=== PATIENT | female | born 1980 | race Hispanic/Latino ===

== ENCOUNTER 2017-06-25 09:27 | Emergency (ER) | payer OTHER, BC ==
[2017-06-25 09:33] VITALS: TEMP 98; O2SAT 99
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
[2017-06-25] MEDS ORDERED: Sodium Chloride 0.9% 1,000 ML IV STA (10:15)
[2017-06-25 10:19] LABS: BASO # 0.05 K/mm3 (0.0-2.0); BASO % 0.5 % (0.0-3.0); EOS # 0.1 (0.0-0.7); EOS % 1.2 % (1.5-5.0); GRAN # 7.67 (1.4-6.5); GRAN % 73.5 % (50.0-68.0); HEMATOCRIT 38.9 % (36.0-48.0); LYMPH # 1.4 (1.2-3.4); LYMPH % 13.5 % (22.0-35.0); MEAN CELL VOLUME 89.6 fl (80.0-105.0); MEAN CORPUSCULAR HEMOGLOBIN 28.6 pg (25.0-35.0); MEAN CORPUSCULAR HGB CONC 31.9 g/dl (31.0-37.0); MEAN PLATELET VOLUME 9.7 fl (7.0-11.0); MONO # 1.2 (0.1-0.6); MONO % 11.3 % (1.0-6.0); RED CELL DISTRIBUTION WIDTH 15.7 % (11.5-14.5); URINE BILIRUBIN NEGATIVE (NEGATIVE); URINE BLOOD NEGATIVE (NEGATIVE); URINE GLUCOSE (UA) NEGATIVE (NEGATIVE); URINE KETONE NEGATIVE (NEGATIVE); URINE LEUKOCYTE ESTERASE NEGATIVE Leu/uL (NEGATIVE); URINE PROTEIN 30 mg/dL (<30 mg/dL); URINE UROBILINOGEN 0.2 E.U./dL (<1 E.U./dL); WHITE BLOOD COUNT 10.4 10^3/ul (4.5-11.0)
[2017-06-25 10:20] LABS: URINE APPEARANCE SL CLOUDY (CLEAR); URINE COLOR YELLOW (YELLOW)
[2017-06-25 10:27] LABS: BLOOD UREA NITROGEN 10 mg/dL (7-21); CARBON DIOXIDE 29 mmol/L (21-33); CHLORIDE 108 mmol/L (98-107); GFR AFRICAN-AMERICAN > 60; GLUCOSE,RANDOM 107 mg/dL (70-110); POTASSIUM 3.7 mmol/L (3.6-5.0); SODIUM 149 mmol/L (132-148)
[2017-06-25 10:28] LABS: ALB/GLOB RATIO 1.4 (1.1-1.8); ALKALINE PHOSPHATASE 65 U/L (38-126); ALT/SGPT 55 U/L (7-56); AST/SGOT 50 U/L (14-36); BILIRUBIN,TOTAL 0.7 mg/dL (0.2-1.3); CALCIUM 8.9 mg/dL (8.4-10.5); TOTAL PROTEIN 7.5 g/dL (5.8-8.3)
[2017-06-25 10:34] LABS: URINE BACTERIA SMALL (NEG); URINE EPITHELIAL CELLS MANY /hpf (0-5); URINE RBC NEGATIVE /hpf (0-2); URINE WBC 0 - 2 /hpf (0-6)
[2017-06-25] MEDS ORDERED: Iohexol 350 MG/100 ML VIAL ONE (10:51)
--- NOTE | 2017-06-25 11:32 | CT ---
PROCEDURE: CT HEAD WITHOUT CONTRAST. HISTORY: autoped COMPARISON: CT maxillofacial of 07/02/2013 TECHNIQUE: Axial computed tomography images were obtained through the head/brain without intravenous contrast. Radiation dose: Total exam DLP = 678 mGy-cm. This CT exam was performed using one or more of the following dose reduction techniques: Automated exposure control, adjustment of the mA and/or kV according to patient size, and/or use of iterative reconstruction technique. FINDINGS: HEMORRHAGE: No intracranial hemorrhage. There is some motion artifact present BRAIN: No mass effect or edema. No atrophy or chronic microvascular ischemic changes. VENTRICLES: Unremarkable. No hydrocephalus. CALVARIUM: A 3 mm left posterior parietal intra calvarial lucency - nonspecific and indeterminate is noted. Prior CT maxillofacial study did not include this high anatomy point to assess for its stability. No calvarial fracture noted. The deformity of the left orbit along with the intra orbital fat herniating into the left maxillary sinus is a chronic status for this patient document on the July 02 2013 study PARANASAL SINUSES: Ethmoidal sinus inflammatory changes noted. 1 cm left sphenoid sinus retention cyst suggested MASTOID AIR CELLS: Unremarkable as visualized. No inflammatory changes. OTHER FINDINGS: No left scalp swelling appreciated. Nasopharyngeal soft tissue prominence- hypertrophic lymphatic tissue here is inferred. Correlate clinically IMPRESSION: No intracranial hemorrhage or mass effect. 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 No acute calvarial interval fractures appreciated. Ethmoid and sphenoid sinus inflammatory changes. Sphenoid sinus retention cyst Nasopharyngeal soft tissue prominence- hypertrophic lymphatic tissue here is inferred. Correlate clinically
--- NOTE | 2017-06-25 12:23 | CT ---
PROCEDURE: CT Chest, Abdomen and Pelvis with intravenous contrast HISTORY: autoped right sided rib/upper abd pain COMPARISON: None. TECHNIQUE: IV dose administered: 100 cc of Omni 350 Radiation dose: Total exam DLP = 1057 mGy-cm. This CT exam was performed using one or more of the following dose reduction techniques: Automated exposure control, adjustment of the mA and/or kV according to patient size, and/or use of iterative reconstruction technique. FINDINGS: CT CHEST WITH CONTRAST: LUNGS: Clear. No nodule, mass or consolidation. MEDIASTINUM: Unremarkable. Normal caliber aorta and pulmonary arterial trunk. No aortic dissection. Normal size heart. LYMPH NODES: Unremarkable. PLEURA: Unremarkable. No pneumothorax. No pleural fluid. BONES: Unremarkable. OTHER FINDINGS: None. CT ABDOMEN AND PELVIS: LIVER: Unremarkable. No gross lesion or ductal dilatation. GALLBLADDER AND BILE DUCTS: Unremarkable. PANCREAS: Unremarkable. No gross lesion or ductal dilatation. SPLEEN: Unremarkable. ADRENALS: Unremarkable. No mass. KIDNEYS AND URETERS: Unremarkable. No hydronephrosis. No solid mass. VASCULATURE: Unremarkable. No aortic aneurysm. BOWEL: There is mild mural thickening in the descending and sigmoid colon. Part of this may be due to lack of distension. A mild colitis cannot be excluded. APPENDIX: Normal appendix. PERITONEUM: Unremarkable. No free fluid. No free air. LYMPH NODES: Unremarkable. No enlarged lymph nodes. BLADDER: Unremarkable. REPRODUCTIVE: Unremarkable. BONES: No acute fracture. OTHER FINDINGS: None. IMPRESSION: There is mild mural thickening in the descending and sigmoid colon. Part of this may be due to lack of distension. A mild colitis cannot be excluded. Study is otherwise unremarkable
[2017-06-25 13:29] VITALS: BP 119/88; PULSE 89; RESP 19
--- NOTE | 2017-06-25 16:55 | CARD ---
APPROVED REPORT EKG Measurement Heart [id number] <Conclusion> Normal sinus rhythm with sinus arrhythmia Prolonged QT Abnormal ECG
== END 2017-06-25 13:41 | disposition home or self-care (01) ==
LOC: ED 09:27
DX: S20.219A Contusion of unspecified front wall of thorax, initial encounter (principal); S09.90XA Unspecified injury of head, initial encounter; S30.1XXA Contusion of abdominal wall, initial encounter; S30.0XXA Contusion of lower back and pelvis, initial encounter; V03.90XA Pedestrian on foot injured in collision with car, pick-up truck or van, unspecified whether traffic or nontraffic accident, initial encounter; Y92.410 Unspecified street and highway as the place of occurrence of the external cause
CPT/HCPCS: 70450; 71260; 74177; 80053; 81001; 85025; 93005; 96361; 96374; 99285; J1885; J7040; Q9967

== ENCOUNTER 2018-12-03 10:59 | Emergency (ER) | payer BC, MEDICAID, OTHER ==
[2018-12-03 11:12] VITALS: RESP 18; TEMP 99.2
--- NOTE | 2018-12-03 11:48 | ED PDOC ---
Arrival/HPI - General Chief Complaint: Lower Extremity Problem/Injury Historian: Patient - History of Present Illness Narrative History of Present Illness (Text): 12/03/18 11:45 38 y/o female, no significant pmh, nkda, c/o left calf swelling and pain s/p twisted while going down the stair x 5 days. Pt. stated she has left calf pain, still in pain with improved, no fever or chills, no headache or night sweat, able to walk and stand but in pain, no numbness or tingling, able to lt. foot/ankle plantar flexion and extension, no dizziness, no other medical or psychological complaints. Past Medical History - Provider Review Nursing Documentation Reviewed: Yes - Infectious Disease Hx of Infectious Diseases: None - Tetanus Immunization Tetanus Immunization: Unknown - Reproductive Menopause: No - Psychiatric Hx Substance Use: No - Surgical History Hx Section: Yes Family/Social History - Physician Review Nursing Documentation Reviewed: Yes Family/Social History: Unknown Family HX Smoking Status: Never Smoked Hx Alcohol Use: Yes Hx Substance Use: No Allergies/Home Meds Allergies/Adverse Reactions: Allergies No Known Allergies Allergy (Verified 06/25/17 09:33) Review of Systems - Review of Systems Constitutional: absent: Fatigue, Fevers Eyes: absent: Vision Changes ENT: absent: Hearing Changes Respiratory: absent: SOB, Cough Cardiovascular: absent: Chest Pain Gastrointestinal: absent: Abdominal Pain, Diarrhea, Nausea, Vomiting Musculoskeletal: Myalgias. absent: Arthralgias, Back Pain, Neck Pain, Joint Swelling Skin: absent: Rash, Pruritis Neurological: absent: Headache, Dizziness Psychiatric: absent: Anxiety, Depression, Suicidal Ideation Physical Exam Vital Signs Reviewed: Yes Vital Signs Temp Pulse Resp BP Pulse Ox 12/03/18 11:09 99.2 F 92 H 18 150/118 H 98 Temperature: Afebrile Blood Pressure: Hypertensive Pulse: Regular Respiratory Rate: Normal Appearance: Positive for: Well-Appearing, Non-Toxic, Comfortable Pain Distress: Moderate Mental Status: Positive for: Alert and Oriented X 3 - Systems Exam Head: Present: Atraumatic, Normocephalic Pupils: Present: PERRL Extroacular Muscles: Present: EOMI Conjunctiva: Present: Normal Mouth: Present: Moist Mucous Membranes Neck: Present: Normal Range of Motion Respiratory/Chest: Present: Clear to Auscultation, Good Air Exchange. No: Respiratory Distress, Accessory Muscle Use Cardiovascular: Present: Regular Rate and Rhythm, Normal S1, S2. No: Murmurs Abdomen: No: Tenderness, Distention, Peritoneal Signs Back: Present: Normal Inspection Upper Extremity: Present: Normal Inspection. No: Cyanosis, Edema Lower Extremity: Present: Normal Inspection, Other (Lt. lower extremity: +ttp and swelling with resolving ecchymosis noted on the left calf region, no bony tenderness or swelling, FROM without limitation, sensation intact, motor 5/5, +DPPT pulses, capillary refill< 2 seconds. ). No: Edema Neurological: Present: GCS=15, CN II-XII Intact, Speech Normal, Motor Func Grossly Intact, Normal Cerebellar Funct, Gait Normal, Memory Normal Skin: Present: Warm, Dry, Normal Color. No: Rashes Psychiatric: Present: Alert, Oriented x 3, Normal Insight, Normal Concentration Medical Decision Making ED Course and Treatment: 12/03/18 11:48 -labs -xray -IVF/toradol -[place] r/o compartment -Observe and reassess 12/03/18 15:12 -Lt. tibia/fibula Unremarkable radiographs of the left tibia and fibula. -LLE Venuous doppler No sonographic evidence for deep venous thrombosis in the visualized segments of the left lower extremity. Large left posterior calf collection. -Labs are non-significant -CPK 545, IVF ordered -Vincent on the left calf region: clean with normal saline/betadine/alcohol prep, following the manual instruction, [place] pressure obtained from the left calf extremity: anterior/lateral/posterior compartment with pressure around 12- 18, no signs of compartment syndrome. -There is no signs of infection. -Pt. feels well, no difficulty moving the lt. lower extremity and able to flexion and extension on the foot/ankle, negative tonya and interiano sign on the left lower extremity. -I offered further radiology testing and evaluation but the patient stated that she feels well, wanna be discharged home now, advised her to return to the ER for any new or worsening signs or symptoms. -Pt. feels well, no pain now, request to be discharged home. -Discharge home with crutches, motrin, follow up with your own pmd and orthopedic within 2 days, return to the Er for any new or worsening signs or symptoms. - RAD Interpretation Radiology Orders: 12/03/18 11:39 TIBIA FIBULA LT FALL PROTOCOL [RAD] Stat DUPLEX LOWER EXTRM VEIN LEFT [US] Stat Lt. tibia/fibula: Date of service: 12/03/2018 PROCEDURE: Radiographs of the left tibia and fibula. HISTORY: lt. tibia/fibula and pain COMPARISON: None available. TECHNIQUE: Frontal and lateral views obtained. 2 views obtained. FINDINGS: BONES: No fracture or destructive lesion. JOINT SPACES: Unremarkable. OTHER FINDINGS: None. IMPRESSION: Unremarkable radiographs of the left tibia and fibula. LLE Venuous doppler: PROCEDURE: Left lower extremity venous US HISTORY: Leg pain and swelling. Evaluate for DVT. PHYSICIAN(S): Gianni Watters MD. TECHNIQUE: Duplex sonography and color-flow Doppler with graded compression were used to evaluate the deep venous system of the left lower extremity. FINDINGS: The visualized deep venous system of the left lower extremity is sonographically normal and compressible. Normal wave forms and augmentation are seen. There is no sonographic evidence for deep venous thrombosis in the visualized segments of the left lower extremity. There is a complex 6 x 13 cm fluid collection in the left calf, the differential includes hematoma or possibly infection IMPRESSION: 1. No sonographic evidence for deep venous thrombosis in the visualized segments of the left lower extremity. 2. Large left posterior calf collection. The differential includes hematoma or infection [place] Constable: Radiologist - PA / ROOFER / Resident Statement MD/DO has reviewed & agrees with the documentation as recorded. Disposition/Present on Arrival - Present on Arrival Any Indicators Present on Arrival: No History of DVT/PE: No History of Uncontrolled Diabetes: No Urinary Catheter: No History of Decub. Ulcer: No History Surgical Site Infection Following: None - Disposition Have Diagnosis and Disposition been Completed?: Yes Diagnosis: Calf pain, Hematoma Disposition: HOME/ ROUTINE Disposition Time: 15:19 Patient Plan: Discharge Condition: IMPROVED Additional Instructions: -Discharge home with crutches, motrin, follow up with your own pmd and orthopedic within 2 days, return to the Er for any new or worsening signs or symptoms. Prescriptions: Ibuprofen [Motrin Tab] 800 mg PO TID PRN #21 tab PRN Reason: Other Referrals: PCP,NO [Primary Care Provider] - Follow up with primary [facility] [place] [Outside] - Follow up with primary Iggy Rao MD [Staff Provider] - Follow up with primary Forms: [employer] (Stateless), WORK NOTE
[2018-12-03 12:04] LABS: BASO # 0.02 K/mm3 (0.0-2.0); BASO % 0.3 % (0.0-3.0); EOS # 0.1 (0.0-0.7); HEMOGLOBIN 12.6 g/dL (12.0-16.0); LYMPH # 1.1 (1.2-3.4); LYMPH % 18.3 % (22.0-35.0); MEAN CELL VOLUME 93.6 fl (80.0-105.0); MEAN CORPUSCULAR HEMOGLOBIN 29.7 pg (25.0-35.0); MEAN CORPUSCULAR HGB CONC 31.7 g/dl (31.0-37.0); MONO # 0.6 (0.1-0.6); MONO % 10.9 % (1.0-6.0); RBC 4.24 10^6/uL (3.5-6.1); RED CELL DISTRIBUTION WIDTH 14.7 % (11.5-14.5); WHITE BLOOD COUNT 5.9 10^3/uL (4.5-11.0)
[2018-12-03 12:05] LABS: URINE BILIRUBIN NEGATIVE (NEGATIVE); URINE BLOOD NEGATIVE (NEGATIVE); URINE GLUCOSE (UA) NEGATIVE (NEGATIVE); URINE LEUKOCYTE ESTERASE NEGATIVE Leu/uL (NEGATIVE); URINE PROTEIN TRACE mg/dL (<30 mg/dL); URINE UROBILINOGEN 0.2 E.U./dL (<1 E.U./dL)
[2018-12-03 12:07] LABS: URINE APPEARANCE CLEAR (CLEAR); URINE COLOR YELLOW (YELLOW)
[2018-12-03 12:10] LABS: URINE RBC 0 - 2 /hpf (0-2); URINE WBC 0 - 2 /hpf (0-6)
[2018-12-03 12:11] LABS: URINE BACTERIA MOD /hpf
[2018-12-03 12:14] LABS: ALB/GLOB RATIO 1.2 (1.1-1.8); ALBUMIN 4.2 g/dL (3.0-4.8); ALT/SGPT 93 U/L (7-56); AST/SGOT 150 U/L (14-36); BLOOD UREA NITROGEN 4 mg/dL (7-21); CALCIUM 8.4 mg/dL (8.4-10.5); GFR NON-AFRICAN AMERICAN > 60
[2018-12-03] MEDS ORDERED: Sodium Chloride 0.9% 1,000 ML IV STA (12:18)
[2018-12-03] MEDS ORDERED: Lidocaine 1% Inj (20ml) ONE (12:29)
[2018-12-03 12:35] LABS: CK-MB 1.7 ng/mL (0.0-3.6)
[2018-12-03 14:21] VITALS: PULSE 71; O2SAT 95
--- NOTE | 2018-12-03 14:46 | RAD ---
Date of service: 12/03/2018 PROCEDURE: Radiographs of the left tibia and fibula. HISTORY: lt. tibia/fibula and pain COMPARISON: None available. TECHNIQUE: Frontal and lateral views obtained. 2 views obtained. FINDINGS: BONES: No fracture or destructive lesion. JOINT SPACES: Unremarkable. OTHER FINDINGS: None. IMPRESSION: Unremarkable radiographs of the left tibia and fibula.
--- NOTE | 2018-12-03 15:14 | US ---
PROCEDURE: Left lower extremity venous US HISTORY: Leg pain and swelling. Evaluate for DVT. PHYSICIAN(S): Gianni Watters MD. TECHNIQUE: Duplex sonography and color-flow Doppler with graded compression were used to evaluate the deep venous system of the left lower extremity. FINDINGS: The visualized deep venous system of the left lower extremity is sonographically normal and compressible. Normal wave forms and augmentation are seen. There is no sonographic evidence for deep venous thrombosis in the visualized segments of the left lower extremity. There is a complex 6 x 13 cm fluid collection in the left calf, the differential includes hematoma or possibly infection IMPRESSION: 1. No sonographic evidence for deep venous thrombosis in the visualized segments of the left lower extremity. 2. Large left posterior calf collection. The differential includes hematoma or infection
[2018-12-03 15:23] VITALS: BP 153/87
== END 2018-12-03 15:25 | disposition home or self-care (01) ==
LOC: ED 10:59
DX: S80.12XA Contusion of left lower leg, initial encounter (principal); X50.1XXA Overexertion from prolonged static or awkward postures, initial encounter; M79.605 Pain in left leg
CPT/HCPCS: 73590; 80053; 81001; 81025; 82550; 82553; 85025; 93971; 96361; 96374; 99285; J1885; J7030

== ENCOUNTER 2019-01-12 19:38 | Emergency (ER) | payer MEDICAID ==
[2019-01-12 20:00] VITALS: BMI 30.2
[2019-01-12 20:04] VITALS: BP 134/51; PULSE 124; RESP 18; TEMP 97.6; O2SAT 98
--- NOTE | 2019-01-12 20:43 | ED PDOC ---
Arrival/HPI - General Chief Complaint: Alcohol Ingestion Time Seen by Provider: 01/12/19 19:49 Historian: Patient - History of Present Illness Narrative History of Present Illness (Text): 01/12/19 23:48 39 yo F brought in for evaluation for alcohol intoxication. 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 Otherwise she reports no head injury, LOC, N/V, neck/back pain, elbow/arm pain, other extremity pain, CP, abd pain, headache, dizziness. Pt states that she feels well and wants to go home. Past Medical History - Infectious Disease Hx of Infectious Diseases: None - Tetanus Immunization Tetanus Immunization: Unknown - Psychiatric Hx Substance Use: No - Surgical History Hx Section: Yes - Anesthesia Hx Anesthesia: Yes Hx Anesthesia Reactions: No Hx Malignant Hyperthermia: No Family/Social History Family/Social History: No Known Family HX Smoking Status: Never Smoked Hx Alcohol Use: Yes Hx Substance Use: No Allergies/Home Meds Allergies/Adverse Reactions: Allergies No Known Allergies Allergy (Verified 06/25/17 09:33) Review of Systems - Review of Systems Constitutional: absent: Fatigue, Fevers Respiratory: absent: SOB, Cough Cardiovascular: absent: Chest Pain, Palpitations Gastrointestinal: absent: Abdominal Pain, Nausea, Vomiting Genitourinary Female: absent: Dysuria, Frequency Musculoskeletal: absent: Arthralgias, Back Pain, Neck Pain Skin: absent: Rash, Pruritis, Skin Lesions Neurological: absent: Headache, Dizziness Psychiatric: absent: Depression, Suicidal Ideation Physical Exam Vital Signs Temp Pulse Resp BP Pulse Ox 01/12/19 19:38 97.6 F 124 H 18 134/51 L 98 Temperature: Afebrile Blood Pressure: Normal Pulse: Regular Respiratory Rate: Normal Appearance: Positive for: Well-Appearing, Non-Toxic, Comfortable, Other (+appears anxious, pt speaking in full sentences, no slurring, no tremors, able to stand and ambulate with a steady gait) Pain Distress: None Mental Status: Positive for: Alert and Oriented X 3 - Systems Exam Head: Present: Atraumatic, Normocephalic Pupils: Present: PERRL Extroacular Muscles: Present: EOMI Conjunctiva: Present: Normal Mouth: Present: Moist Mucous Membranes Neck: Present: Normal Range of Motion. No: MIDLINE TENDERNESS, Paraspinal Tenderness Respiratory/Chest: Present: Clear to Auscultation, Good Air Exchange. No: Respiratory Distress, Accessory Muscle Use Cardiovascular: Present: Regular Rate and Rhythm, Normal S1, S2. No: Murmurs Abdomen: No: Tenderness, Distention, Peritoneal Signs Back: Present: Normal Inspection. No: Midline Tenderness, Paraspinal Tenderness Upper Extremity: Present: Normal Inspection, Normal ROM, NORMAL PULSES, Neurovascularly Intact, Capillary Refill < 2s. No: Cyanosis, Edema, Tenderness, Swelling, Erythema Lower Extremity: Present: Normal Inspection, Normal ROM. No: Edema, Tenderness, Swelling Neurological: Present: GCS=15, CN II-XII Intact, Speech Normal, Motor Func Grossly Intact, Normal Sensory Function, Gait Normal Skin: Present: Warm, Dry, Normal Color, Abrasion (+3 cm abrasion to the R elbow). No: Rashes, Laceration Psychiatric: Present: Alert, Oriented x 3, Normal Insight, Normal Concentration Medical Decision Making ED Course and Treatment: 01/12/19 23:44 Patient was able to call her sister and be picked up by her sister. Advised to f/u w/ pmd. Rest, drink plenty of fluids (water). Take tylenol for pain. Return to the ER at any time for any new or worsening symptoms. 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 Disposition/Present on Arrival - Present on Arrival Any Indicators Present on Arrival: No History of DVT/PE: No History of Uncontrolled Diabetes: No Urinary Catheter: No History of Decub. Ulcer: No History Surgical Site Infection Following: None - Disposition Have Diagnosis and Disposition been Completed?: Yes Diagnosis: Alcohol intoxication Disposition: HOME/ ROUTINE Disposition Time: 20:40 Patient Plan: Discharge Condition: STABLE Discharge Instructions (ExitCare): Alcohol Use - When Is Drinking a Problem? Referrals: PCP,NO [Primary Care Provider] - Follow up with primary [facility] [Outside] - Follow up with primary Forms: [employer] (Kinyarwanda)
== END 2019-01-12 20:53 | disposition home or self-care (01) ==
LOC: ED 19:38
DX: F10.129 Alcohol abuse with intoxication, unspecified (principal)

== ENCOUNTER 2019-01-14 21:20 | Emergency (ER) | payer MEDICAID ==
[2019-01-14 21:20] VITALS: BMI 30.2
--- NOTE | 2019-01-14 21:29 | ED PDOC ---
Arrival/HPI - General Historian: Patient - History of Present Illness Narrative History of Present Illness (Text): 01/14/19 21:27 39 y/o female, no significant pmh, +etoh on breath, nkda, biba with the police for public intoxication. Pt. stated that she did had drink about couple hours ago, walking on the street, found by the police intoxicated and ambulance was call, no fall or trauma, no head/neck/back/chest/abdomen/extremity injury, no LOC, no nausea/vomiting/diarrhea or tremors, no homicidal or suicidal ideation, no auditory or visual hallucination, no other medical or psychological complaints. <Leandro Hunt - Last Filed: 01/15/19 01:32> <Artie Mejia - Last Filed: 01/15/19 05:16> - General Time Seen by Provider: 01/14/19 21:22 Past Medical History - Provider Review Nursing Documentation Reviewed: Yes - Infectious Disease Hx of Infectious Diseases: None - Tetanus Immunization Tetanus Immunization: Unknown - Psychiatric Hx Substance Use: No - Surgical History Hx Section: Yes - Anesthesia Hx Anesthesia: Yes Hx Anesthesia Reactions: No Hx Malignant Hyperthermia: No <Leandro Hunt - Last Filed: 01/15/19 01:32> Family/Social History - Physician Review Nursing Documentation Reviewed: Yes Family/Social History: Unknown Family HX Smoking Status: Never Smoked Hx Alcohol Use: Yes Hx Substance Use: No <Leandro Hunt - Last Filed: 01/15/19 01:32> Allergies/Home Meds <Leandro Hunt - Last Filed: 01/15/19 01:32> <Artie Mejia - Last Filed: 01/15/19 05:16> Allergies/Adverse Reactions: Allergies No Known Allergies Allergy (Verified 01/14/19 21:29) Home Medications: Home Meds Medication Instructions Recorded Confirmed No Known Home Med 01/14/19 01/14/19 Review of Systems - Review of Systems Constitutional: absent: Fatigue, Fevers Eyes: absent: Vision Changes ENT: absent: Hearing Changes Respiratory: absent: SOB, Cough Cardiovascular: absent: Chest Pain Gastrointestinal: absent: Abdominal Pain, Diarrhea, Nausea, Vomiting Genitourinary Female: absent: Dysuria Musculoskeletal: absent: Arthralgias, Back Pain Skin: absent: Rash, Pruritis Neurological: absent: Headache, Dizziness Endocrine: absent: Diaphoresis Hemo/Lymphatic: absent: Adenopathy, Easy Bleeding, Easy Bruising, Other Psychiatric: absent: Anxiety, Depression, Suicidal Ideation <Leandro Hunt - Last Filed: 01/15/19 01:32> Physical Exam - Systems Exam Head: Present: Atraumatic, Normocephalic, Other (no facial bony tenderness or swelling. ). No: Tenderness, Contusion, Swelling, Ecchymosis, Abrasion, Laceration Pupils: Present: PERRL Extroacular Muscles: Present: EOMI Conjunctiva: Present: Normal Ears: Present: NORMAL TM, Normal Canal. No: Erythema Mouth: Present: Moist Mucous Membranes Pharnyx: No: ERYTHEMA, EXUDATE, TONSILS ENLARGED Nose (External): Present: Atraumatic. No: Abrasion, Contusion, Laceration Nose (Internal): Present: Normal Inspection, No Active Bleeding. No: Rhinorrhea, Septal Deviation, Septal Hematoma, Epistaxis Neck: Present: Normal Range of Motion, Trachea Midline. No: Meningeal Signs, MIDLINE TENDERNESS, Paraspinal Tenderness, Lymphadenopathy Respiratory/Chest: Present: Clear to Auscultation, Good Air Exchange. No: Respiratory Distress, Accessory Muscle Use, Wheezes, Decreased Breath Sounds, Rales, Retracting, Rhonchi, Tachypneic, Tender to Palpation Cardiovascular: Present: Regular Rate and Rhythm, Normal S1, S2. No: Murmurs Abdomen: Present: Normal Bowel Sounds. No: Tenderness, Distention, Peritoneal Signs, Rebound, Guarding, Rovsing's Sign Present Back: Present: Normal Inspection. No: CVA Tenderness, Midline Tenderness, Paraspinal Tenderness, Pain with Leg Raise, Decubitus Ulcer Upper Extremity: Present: Normal Inspection, Normal ROM, NORMAL PULSES, Neurovascularly Intact, Capillary Refill < 2s. No: Cyanosis, Edema, Tenderness, Swelling, Deformity Lower Extremity: Present: Normal Inspection, NORMAL PULSES, Normal ROM, Neurovascularly Intact, Capillary Refill < 2 s. No: Edema, CALF TENDERNESS, Marily's Sign, Tenderness, Swelling, Deformity, Temperature Abnormalties Neurological: Present: GCS=15, CN II-XII Intact, Speech Normal Skin: Present: Warm, Dry, Normal Color. No: Rashes Psychiatric: Present: Alert, Oriented x 3, Normal Insight, Normal Concentration <Leandro Hunt - Last Filed: 01/15/19 01:32> Vital Signs Temp Pulse Resp BP Pulse Ox 01/15/19 04:19 102 H 18 100/58 L 95 01/15/19 00:32 104 H 20 95/56 L 94 L 01/14/19 21:26 98.8 F 115 H 20 99/54 L 98 <Artie Mejia - Last Filed: 01/15/19 05:16> Medical Decision Making ED Course and Treatment: 01/14/19 21:29 -FS -Urine hcg -observe and reassess 01/14/19 21:51 -Urine hcg is negative -FS 98 -Pt. was agitated, threatened to leave/yelling/cursing at the staff, sheila davies was call, sedated, teletypesetter monitor, observe until sober 01/14/19 23:21 -Alcohol 383 -Resting comfortably, easily arousable, calmed now. 01/15/19 01:30 -Case discussed and endorsed to Dr. Mejia for the follow up care and dispo <Leandro Hunt - Last Filed: 01/15/19 01:32> ED Course and Treatment: 01/15/19 05:15 patient is awake and alert, clear speech and steady gait, stable for dc. - Medication Orders Current Medication Orders: Discontinued Medications Ziprasidone (Geodon Inj) 20 mg IM STAT STA; Protocol Stop: 01/14/19 21:43 Last Admin: 01/14/19 21:55 Dose: 20 mg IM Administration Charges Document 01/14/19 21:55 RD (Rec: 01/14/19 21:55 RD [facility]-[id number]) Injection Site MAR Injection Site Left Deltoid Charges for Administration # of IM Administrations 1 <Artie Mejia - Last Filed: 01/15/19 05:16> - PA / [employer] / Resident Statement MD/DO has reviewed & agrees with the documentation as recorded. <Leandro Hunt - Last Filed: 01/15/19 01:32> Disposition/Present on Arrival - Present on Arrival Any Indicators Present on Arrival: No History of DVT/PE: No History of Uncontrolled Diabetes: No Urinary Catheter: No History of Decub. Ulcer: No History Surgical Site Infection Following: None - Disposition Have Diagnosis and Disposition been Completed?: Yes Disposition Time: 21:52 <Leandro Hunt - Last Filed: 01/15/19 01:32> - Disposition Patient Plan: Discharge <Artie Mejia - Last Filed: 01/15/19 05:16> - Disposition Diagnosis: Alcohol intoxication Patient Problems: Current Active Problems Problem Status Onset Alcohol intoxication Acute Condition: STABLE
[2019-01-14 21:30] VITALS: TEMP 98.8
[2019-01-15 05:19] VITALS: BP 102/61; PULSE 88; RESP 16; O2SAT 97
== END 2019-01-15 05:19 | disposition home or self-care (01) ==
LOC: ED 21:20
DX: F10.129 Alcohol abuse with intoxication, unspecified (principal)
CPT/HCPCS: 80320; 81025; 82948; 96372; 99283; J3486